=== PATIENT | female | born 1985 | race Asian ===

== ENCOUNTER 2020-10-20 00:15 | Outpatient (CLI) | payer OTHER ==
[~2020-10-20] VITALS: Ht 147.3 cm; Wt 62.1 kg
[2020-10-20 00:52] VITALS: BP 119/77
[2020-10-20] MEDS ORDERED: PREN1TAB60 PO (18:47)
== END 2020-10-20 04:10 | disposition home or self-care (01) ==
LOC: LDOP 00:15
PROVIDERS: ATTEND Obstetrics & Gynecology
DX: O26.893 Other specified pregnancy related conditions, third trimester (principal); R10.9 Unspecified abdominal pain; Z3A.38 38 weeks gestation of pregnancy
CPT/HCPCS: 59025

== ENCOUNTER 2020-10-20 14:54 | Inpatient (IN) | payer OTHER ==
[~2020-10-20] VITALS: Ht 147.3 cm; Wt 62.2 kg
[2020-10-20] MEDS ORDERED: D5%-LACTATED RINGERS 1,000 ML IV SCH (15:30)
[2020-10-20] MEDS ORDERED: FENTANYL PF 100 MCG/2ML IVPush PRN (15:30)
[2020-10-20] MEDS ORDERED: TERBUTALINE 1 MG/ML, 1ML SQ PRN (15:30)
[2020-10-20] MEDS ORDERED: TERBUTALINE 1 MG/ML, 1ML IVPush PRN (15:30)
[2020-10-20] MEDS ORDERED: LACTATED RINGERS 1,000 ML IV SCH ×2 (15:30→18:00)
[2020-10-20] MEDS ORDERED: OXYTOCIN 30U/ 0.9% NaCL 500ML 500 ML IV ONE (15:30)
[2020-10-20] MEDS ORDERED: ONDANSETRON 2MG/ML, 2ML IVPush PRN (15:30)
[2020-10-20 15:45] LABS: BASOPHILS % (AUTO) 1 % (0-1); EOSINOPHILS % (AUTO) 0 % (1-7); LYMPHOCYTES % (AUTO) 13 % (22-44); MEAN CORPUSCULAR HEMOGLOBIN 31.7 pg (27.0-34.8); MEAN CORPUSCULAR HGB CONC 34.1 g/dL (32.4-35.8); MONOCYTES % (AUTO) 5 % (2-9); NEUTROPHILS % (AUTO) 82 % (42-75); PLATELET COUNT 389 x10^3/uL (130-400); RED BLOOD COUNT 4.71 x10^6/uL (3.82-5.3); RED CELL DISTRIBUTION WIDTH 14.2 % (9.6-15.2)
[2020-10-20] MEDS ORDERED: NEWBORN KIT ONE (16:51)
[2020-10-20] MEDS ORDERED: FENTANYL/BUPIV./NS/PF 250 ML EPIDCONT ONE (17:00)
[2020-10-20] MEDS ORDERED: LACTATED RINGERS 1,000 ML IVBOLUS PRN (18:00)
[2020-10-20] MEDS ORDERED: NALOXONE 0.4 MG/ML, 1ML IVPush PRN (18:00)
[2020-10-20] MEDS ORDERED: EPHEDRINE 50 MG/ML, 1ML IVPush PRN (18:00)
[2020-10-20] MEDS ORDERED: FENTANYL/BUPIV./NS/PF 250 ML EPIDCONT SCH (18:00)
[2020-10-20] MEDS ORDERED: LIDOCAINE 1%, 20ML ONE (18:29)
[2020-10-20] MEDS ORDERED: MISOPROSTOL 200 MCG TABLET ONE (18:30)
[2020-10-20] MEDS ORDERED: PREN1TAB60 PO (18:47)
[2020-10-20] MEDS ORDERED: OXYTOCIN 30U/ 0.9% NaCL 500ML 500 ML IV PRN (19:30)
[2020-10-20 20:05] VITALS: BP 106/68
[2020-10-21 02:45] VITALS: BP 117/73
[2020-10-21] MEDS ORDERED: MISOPROSTOL 200 MCG TABLET PR PRN (03:30)
[2020-10-21] MEDS: OXYTOCIN 30U/ 0.9% NaCL 500ML 500 ML IV SCH ×2 (03:30→13:30)
[2020-10-21] MEDS ORDERED: OXYcodone/APAP 5/325MG TABLET PO PRN (03:30)
[2020-10-21] MEDS ORDERED: HYDROcodone/APAP 5/325 TABLET PO PRN (03:30)
[2020-10-21] MEDS ORDERED: BISACODYL 10 MG SUPP PR PRN (03:30)
[2020-10-21] MEDS ORDERED: ONDANSETRON 2MG/ML, 2ML IV PRN (03:30)
[2020-10-21] MEDS ORDERED: ACETAMINOPHEN 325 MG TABLET PO PRN (03:30)
[2020-10-21] MEDS ORDERED: RHOGAM FROM BLOOD BANK 1 NOTE EA IM/IV ONE (03:30)
[2020-10-21 08:30] VITALS: BP 113/74
[2020-10-21] MEDS ORDERED: IBUPROFEN 600 MG TABLET ONE ×2 (09:04→18:03)
[2020-10-21] MEDS: PRENATAL VIT/IRON/FA 1 EACH TABLET PO SCH (09:12)
[2020-10-21] MEDS: IBUPROFEN 800 MG TABLET PO PRN ×2 (09:12→18:07)
[2020-10-21] MEDS: DOCUSATE 100 MG CAPSULE PO PRN ×2 (09:12→18:07)
[2020-10-21 10:45] LABS: BASOPHILS % (AUTO) 1 % (0-1); EOSINOPHILS % (AUTO) 0 % (1-7); LYMPHOCYTES % (AUTO) 13 % (22-44); MEAN CORPUSCULAR HGB CONC 33.7 g/dL (32.4-35.8); MEAN PLATELET VOLUME 6.8 fL (7.4-10.4); MONOCYTES % (AUTO) 7 % (2-9); NEUTROPHILS % (AUTO) 80 % (42-75); PLATELET COUNT 323 x10^3/uL (130-400); RED CELL DISTRIBUTION WIDTH 13.8 % (9.6-15.2)
[2020-10-21 12:05] VITALS: BP 99/67
[2020-10-21 15:50] VITALS: BP 101/69
[2020-10-21 21:00] VITALS: BP 103/69
[2020-10-22] VITALS: BP 102/68
[2020-10-22 07:15] VITALS: BP 104/72
[2020-10-22] MEDS: PRENATAL VIT/IRON/FA 1 EACH TABLET PO SCH (08:06)
[2020-10-22] MEDS: DOCUSATE 100 MG CAPSULE PO PRN (08:06)
== END 2020-10-22 12:10 | disposition home or self-care (01) | DRG 806 ==
LOC: LDOP 14:54 → LDIP 15:28 → 2NW 10-21 03:45
PROVIDERS: ADMIT Obstetrics & Gynecology; ATTEND Obstetrics & Gynecology
PROC: 10E0XZZ Delivery of Products of Conception, External Approach (ICD-10-PCS; principal; 2020-10-21)
PROC: 3E0R3BZ Introduction of Anesthetic Agent into Spinal Canal, Percutaneous Approach (ICD-10-PCS; 2020-10-21)
PROC: 00HU33Z Insertion of Infusion Device into Spinal Canal, Percutaneous Approach (ICD-10-PCS; 2020-10-21)
PROC: 0UQGXZZ Repair Vagina, External Approach (ICD-10-PCS; 2020-10-21)
DX: O24.420 Gestational diabetes mellitus in childbirth, diet controlled (principal); O71.4 Obstetric high vaginal laceration alone; Z37.0 Single live birth; Z20.822 Contact with and (suspected) exposure to COVID-19; Z3A.38 38 weeks gestation of pregnancy; Z83.3 Family history of diabetes mellitus; Z91.013 Allergy to seafood
CPT/HCPCS: 36415; 82962; 85025; 86592; 86850; 86900; 87635; G0378; J2590; J3010; J7120